=== PATIENT | female | born 1950 | race Caucasian/White ===

== ENCOUNTER → 2018-10-27 | Outpatient (CLI) | payer MEDICARE, OTHER ==
[~2018-10-27] MED LIST: HYDACE5 PO; IBUP600 PO; LISHYD2025 PO; MELA3 PO; METO50 PO; Multivitamin1 EAC1 PO; UNISOM25 MG PO
[2018-10-27 13:20] LABS: BASOPHILS ABSOLUTE AUTO 0.07 K/mm3 (0.00-0.23); BASOPHILS PERCENT AUTO 1 % (0-2); EOSINOPHILS PERCENT AUTO 4 % (0-6); Hematocrit 40.4 % (33.0-51.0); Hemoglobin 14.2 g/dL (11.5-16.0); IMMATURE GRAN ABSOLUTE AUTO 0.01 K/mm3 (0.00-0.10); IMMATURE GRAN PERCENT AUTO 0 % (0-1); LYMPHOCYTES ABSOLUTE AUTO 2.67 K/mm3 (0.84-5.20); LYMPHOCYTES PERCENT AUTO 39 % (21-46); MONOCYTES ABSOLUTE AUTO 0.54 K/mm3 (0.16-1.47); MONOCYTES PERCENT AUTO 8 % (4-13); Mean Corpuscular HGB Conc 35.1 g/dL (31.5-36.5); Mean Corpuscular Volume 88 fL (80-100); Mean Platelet Volume 10.8 fL (9.1-12.4); NEUTROPHILS ABSOLUTE AUTO 3.26 K/mm3 (1.96-9.15); NEUTROPHILS PERCENT AUTO 48 % (41-73); Platelet Count 246 K/mm3 (150-400); RDW Standard Deviation 38.6 fL (35.1-46.3); Red Blood Cell Count 4.58 M/mm3 (3.80-5.20); White Blood Cell Count 6.85 K/mm3 (4.00-11.30)
[2018-10-27 13:37] LABS: Alanine Aminotransfer (ALT/SGP 24 U/L (12-78); Albumin, Blood 3.8 g/dL (3.4-5.0); Albumin/Globulin Ratio 1.1 (0.8-1.8); Alk Phos 75 U/L (40-126); Anion Gap 11 mmol/L (6-16); Aspartate Aminotrans (AST/SGOT 20 U/L (12-37); Bilirubin, Total 1.3 mg/dL (0.1-1.0); Blood Urea Nitrogen 7 mg/dL (8-24); Bun/Creatinine Ratio 8.1 (12.0-20.0); CO2, Blood 23 mmol/L (21-32); Calcium, Blood 9.1 mg/dL (8.5-10.1); Chloride, Blood 103 mmol/L (98-108); Creatinine, Blood 0.86 mg/dL (0.40-1.00); Globulin, Blood 3.6 g/dL (2.2-4.0); Glomerular Filtration Rate >60 (60-); Glucose, Blood 93 mg/dL (70-99); Potassium, Blood 3.7 mmol/L (3.5-5.5); Sodium, Blood 137 mmol/L (136-145); Thyroid Stimulating Hormone 1.373 uIU/mL (0.360-4.800); Total Protein, Blood 7.4 g/dL (6.4-8.2); Troponin I <0.017 ng/mL (0.000-0.040)
== END | disposition home or self-care (01) ==
LOC: LAB EV 13:11 → LAB SHORT 13:11 → LAB 13:11
PROVIDERS: Physician Assistant
DX: R07.9 Chest pain, unspecified (principal); R53.83 Other fatigue
CPT/HCPCS: 80053; 83880; 84443; 84484; 85025

== ENCOUNTER 2019-08-23 08:23 | Day surgery (SDC) | payer OTHER ==
[~2019-08-23 08:23] MED LIST changes: +AMLO5 PO; +EZET10 PO; +LISI20 PO; +NAPR500 PO; +NIAC500 PO
== END 2019-08-23 22:52 | disposition home or self-care (01) ==
LOC: MOI US 08:23
DX: C50.812 Malignant neoplasm of overlapping sites of left female breast (principal)
CPT/HCPCS: 19285; 77065

== ENCOUNTER → 2019-10-14 | Outpatient (CLI) | payer OTHER ==
[2019-10-16 15:07] LABS: HPV 16 Negative (Negative); HPV 18 Negative (Negative); HPV OTHER HR TYPES Positive (Negative)
== END ==
LOC: LAB 16:43 → LAB SHORT 16:43
PROVIDERS: Nurse Practitioner Family
DX: Z12.4 Encounter for screening for malignant neoplasm of cervix (principal)
CPT/HCPCS: 87624; 87625; G0145

== ENCOUNTER → 2020-09-07 | Outpatient (CLI) | payer OTHER ==
[2020-09-07 20:16] LABS: Alanine Aminotransfer (ALT/SGP 29 U/L (12-78); Albumin, Blood 3.9 g/dL (3.4-5.0); Albumin/Globulin Ratio 1.3 (0.8-1.8); Alk Phos 70 U/L (50-136); Anion Gap 9 mmol/L (6-16); Aspartate Aminotrans (AST/SGOT 23 U/L (12-37); Bilirubin, Total 0.9 mg/dL (0.1-1.0); Blood Urea Nitrogen 8 mg/dL (8-24); Bun/Creatinine Ratio 9.9 (12.0-20.0); CO2, Blood 20 mmol/L (21-32); Calcium, Blood 9.7 mg/dL (8.5-10.1); Chloride, Blood 104 mmol/L (98-108); Creatinine, Blood 0.81 mg/dL (0.40-1.00); Globulin, Blood 2.9 g/dL (2.2-4.0); Glomerular Filtration Rate >60 (60-); Glucose, Blood 89 mg/dL (70-99); Phosphorus, Blood 3.5 mg/dL (2.5-4.9); Potassium, Blood 4.2 mmol/L (3.5-5.5); Sodium, Blood 133 mmol/L (136-145); Total Protein, Blood 6.8 g/dL (6.4-8.2)
== END ==
LOC: LAB SHORT 13:50 → LAB 13:50
PROVIDERS: Internal Medicine Hematology & Oncology
DX: E55.9 Vitamin D deficiency, unspecified (principal); I10 Essential (primary) hypertension
CPT/HCPCS: 80053; 82306; 84100

== ENCOUNTER → 2021-03-08 | Outpatient (CLI) | payer OTHER ==
[2021-03-10 13:10] LABS: HPV 16 Negative (Negative); HPV 18 Negative (Negative); HPV OTHER HR TYPES Positive (Negative)
== END ==
LOC: LAB 13:36 → LAB SHORT 13:36
PROVIDERS: Student in an Organized Health Care Education/Training Program
DX: R87.89 Other abnormal findings in specimens from female genital organs (principal)
CPT/HCPCS: 87624; 87625; 88175

== ENCOUNTER → 2021-04-12 | Outpatient (CLI) | payer OTHER | END | disposition home or self-care (01) | LOC: LAB SHORT 08:12 → LAB 08:12 | DX: R87.810 Cervical high risk human papillomavirus (HPV) DNA test positive (principal) | CPT/HCPCS: 88305 ==

== ENCOUNTER → 2022-04-04 | Outpatient (CLI) | payer OTHER | LOC: EFM RAD 13:27 | DX: M25.552 Pain in left hip (principal); M16.12 Unilateral primary osteoarthritis, left hip | CPT/HCPCS: 73502 ==

== ENCOUNTER 2022-12-21 05:56 | Day surgery (SDC) | payer OTHER ==
[2022-12-21] VITALS (20 sets, daily range): BP systolic 115–188; BP diastolic 63–98
[~2022-12-21] VITALS: Ht 162.6 cm; Wt 88.7 kg
[~2022-12-21 05:56] MED LIST changes: +Metoprolol Succ25 MG PO
--- NOTE | 2022-12-21 06:30 | NUR ---
Ambulatory in Day Surgery. History, Chart, Medications and Allergies reviewed before start of procedure.Lungs clear T/O to Auscultation. Patient confirms NPO status and agrees with scheduled surgery. Surgical site prepped with 2% Chlorhexidine cloth wipe. Patient reports completing Chlorhexadine shower X2 prior to admission to hospital.
--- NOTE | 2022-12-21 11:23 | NUR ---
PATIENT ARRIVED ON UNIT FROM PACU TODAY AT 1115. POD 0 LEFT TOTAL HIP PATIENT IS A&OX4. VS ARE WNL AND IS ON RA. PATIENT HAD A SPINAL DURING THE PROCEDURE AND IS DENYING PAIN AT THIS TIME. SHE IS NUMB FROM THE WAIST DOWN BUT PEDAL PULSES ARE STRONG AND WARM TO TOUCH. POLAR PACK IS IN PLACE ON LEFT HIP. SHE IS TOLERATING SMALL AMOUNTS OF PO INTAKE AT THIS TIME. SHE IS LAYING IN BED WITH CALL LIGHT IN REACH. SISTER IS AT BEDSIDE.
--- NOTE | 2022-12-21 13:48 | NUR ---
Pt. is awake in bed and welcomes my visit. Pts. sister is present. Pt. is pleasant, and displays evidence of being a confidant woman of [place]. Facilitate a life review and establish rapport. Pt. verbalizes no concerns but matters of [place] and belief are considered. Prayed with Pt. Pt. 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
--- NOTE | 2022-12-21 16:16 | NUR ---
SHIFT SUMMARY: POD 0 LEFT TOTAL HIP PATIENT IS A&OX4. PAIN IS BETTER MANAGED WITH IV DILAUDID FOR BREAKTHROUGH PAIN, PO OXY, AND THE SCHEDULED PO TYLENOL AND IV TORADOL. HER LEFT HIP HAS AN AQUACEL THAT IS C/D/I. DENIES ANY NUMBNESS OR TINGLING. CAN MOVE ALL FINGERS AND TOES WHEN ASKED. SHE IS A SBA WITH FWW AND GAIT BELT. SHE IS TOLERATING PO INTAKE AND IS VOIDING. SHE IS SITTING UP IN THE RECLINER CHAIR WITH LEGS ELEVATED AND POLAR PACK IN PLACE. CALL LIGHT WITHIN REACH WITH SISTER AT BEDSIDE.
--- NOTE | 2022-12-21 20:30 | NUR ---
BP: PT BP NOTED ELEVATED. PT ASYMPTOMATIC. 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 DISCUSSED CONTACTING MD FOR PRN BP MED. PT REFUSED, STATES "I FEEL FINE, I DON'T NEED OR WANT TO TAKE ANYTHING ELSE" PT EDUCATED ON IMPORTANCE OF BP MGMT, PT NOT RECEPTIVE, STATES "I'M FINE" PT ENC TO NOTIFY NURSING STAFF FOR CHANGES OR IF SX ARISE.
[2022-12-22 00:08] VITALS: BP 179/91
[2022-12-22 04:30] LABS: BASOPHILS ABSOLUTE AUTO 0.01 K/mm3 (0.00-0.23); BASOPHILS PERCENT AUTO 0 % (0-2); EOSINOPHILS ABSOLUTE AUTO 0.01 K/mm3 (0.00-0.68); EOSINOPHILS PERCENT AUTO 0 % (0-6); Hematocrit 29.3 % (33.0-51.0); Hemoglobin 10.1 g/dL (11.5-16.0); IMMATURE GRAN ABSOLUTE AUTO 0.05 K/mm3 (0.00-0.10); IMMATURE GRAN PERCENT AUTO 1 % (0-1); LYMPHOCYTES ABSOLUTE AUTO 1.71 K/mm3 (0.84-5.20); LYMPHOCYTES PERCENT AUTO 17 % (21-46); MONOCYTES ABSOLUTE AUTO 0.84 K/mm3 (0.16-1.47); MONOCYTES PERCENT AUTO 8 % (4-13); Mean Corpuscular HGB 31.7 pg (26.0-34.0); Mean Corpuscular HGB Conc 34.5 g/dL (31.5-36.5); Mean Corpuscular Volume 92 fL (80-100); Mean Platelet Volume 10.4 fL (9.1-12.4); NEUTROPHILS ABSOLUTE AUTO 7.36 K/mm3 (1.96-9.15); NEUTROPHILS PERCENT AUTO 74 % (41-73); Platelet Count 222 K/mm3 (150-400); RDW Coefficient Variation 11.9 % (11.7-14.2); RDW Standard Deviation 40.1 fL (35.1-46.3); Red Blood Cell Count 3.19 M/mm3 (3.80-5.20); White Blood Cell Count 9.98 K/mm3 (4.00-11.30)
[2022-12-22 04:47] LABS: Bun/Creatinine Ratio 20.8 (12.0-20.0); Calcium, Blood 9.4 mg/dL (8.5-10.1); Creatinine, Blood 0.77 mg/dL (0.40-1.00); Magnesium, Blood 2.1 mg/dL (1.6-2.4); Potassium, Blood 4.1 mmol/L (3.5-5.5)
[2022-12-22 06:01] VITALS: BP 154/78
--- NOTE | 2022-12-22 07:09 | NUR ---
POD 1 S/P LEFT ELLA. BP ELEVATED BUT IMPROVED THIS AM, PT REMAINED ASYMPTOMATIC. DRESSINGS CDI. PT DENIED N/T, PULSES AND CAP REFILL WNL. PAIN MGD PER EMAR W/REP RELIEF. PT ALICIA PO, DID HAVE 1 SMALL EPISODE OF EMESIS. PT VOIDING URINE W/O DIFFICULTY, CONT TO HAVE INCONTINENCE R/T URGENCY. PT AMB W/FWW+SBA, ALICIA WELL. PLAN TO MOBILIZE W/PT AND D/C HOME WHEN CLEARED.
[2022-12-22 07:21] VITALS: BP 162/70
[2022-12-22] MEDS ORDERED: ASPI81CH PO (09:11)
[2022-12-22] MEDS ORDERED: HYDMOR2 PO (09:12)
--- NOTE | 2022-12-22 11:27 | NUR ---
1125 DISCHARGED TO HOME WITH FAMILY. PT IN AGREEMENT WITH PLAN TO DISCHARGE. PT AMBULATING WITH WALKER AND STANDBY ASSIST. REPORTS PAIN IS WELL CONTROLLED WITH PO MEDS. ALICIA PO FOOD AND FLUIDS WITHOUT NAUSEA. VOIDING CLEAR YELLOW URINE. DRESSING DRY AND INTACT. PT PROVIDED WITH AQUACEL DRESSINGS FOR HOME.
== END 2022-12-22 11:25 | disposition home or self-care (01) ==
LOC: ORSCMMR 05:56 → ORD 07:30 → SURS 11:04 → ORSCMMR 12-22 11:25
PROVIDERS: Orthopaedic Surgery
PROC: 0SRB0JA Replacement of Left Hip Joint with Synthetic Substitute, Uncemented, Open Approach (ICD-10-PCS; principal; 2022-12-21 07:30)
DX: M16.12 Unilateral primary osteoarthritis, left hip (principal); Z87.891 Personal history of nicotine dependence; I10 Essential (primary) hypertension; Z85.3 Personal history of malignant neoplasm of breast; Z79.899 Other long term (current) drug therapy; E66.9 Obesity, unspecified; Z68.33 Body mass index [BMI] 33.0-33.9, adult
CPT/HCPCS: 36415; 72170; 80048; 83735; 85025; 94760; 97110; 97116; 97161; 97165; 97530; 97535; A9270; C1713; C1776; J0171; J0690; J0735; J1100; J1170; J1885; J2250; J2405; J2704; J2795; J3010; J3370; J7120

== ENCOUNTER → 2023-04-21 | Outpatient (CLI) | payer OTHER ==
[~2023-04-21] MED LIST changes: +ASPI81CH PO; +HYDMOR2 PO
== END ==
LOC: LAB SHORT 15:16 → LAB 15:16
DX: N39.0 Urinary tract infection, site not specified (principal)
CPT/HCPCS: 87077; 87086; 87186

== ENCOUNTER → 2023-06-08 | Outpatient (CLI) | payer OTHER ==
[2023-06-12 15:10] LABS: HPV 16 Negative (Negative); HPV 18 Negative (Negative); HPV OTHER HR TYPES Negative (Negative)
== END ==
LOC: LAB EV 17:42 → LAB SHORT 17:42
PROVIDERS: Family Medicine
DX: Z01.419 Encounter for gynecological examination (general) (routine) without abnormal findings (principal)
CPT/HCPCS: 87624; G0145

== ENCOUNTER → 2023-06-27 | Outpatient (CLI) | payer OTHER ==
[2023-06-27 15:15] LABS: Source, Urine Clean Catch
[2023-06-27 19:28] LABS: Appearance, Urine Clear (Clear); Bilirubin, Urine Neg (Neg); Blood, Urine Neg (Neg); Glucose Qualitative, Urine Neg (Neg); Ketones, Urine Neg (Neg); Leukocyte Esterase, Urine Neg (Neg); Nitrite, Urine Neg (Neg); Protein, Urine Neg (Neg); Urobilinogen, Urine NORM (Normal); pH, Urine 6.5 (5.0-8.0)
[2023-06-27 20:08] LABS: Color, Urine Pale Yellow (P-Yellow)
== END | disposition home or self-care (01) ==
LOC: LAB SHORT 15:12 → LAB 15:12
PROVIDERS: Student in an Organized Health Care Education/Training Program
DX: R30.0 Dysuria (principal)
CPT/HCPCS: 81003

== ENCOUNTER → 2023-06-27 | Outpatient (CLI) | payer OTHER | LOC: LAB 10:00 → LAB SHORT 10:00 | DX: L82.0 Inflamed seborrheic keratosis (principal) | CPT/HCPCS: 88305 ==

== ENCOUNTER → 2024-08-05 | Outpatient (CLI) | payer OTHER ==
[~2024-08-05] MED LIST changes: +Amlodipine Bes2.5 MG PO; +HYDROCHLOROTH12.5 MG PO; +METO25 PO; -Metoprolol Succ25 MG PO; +ONDA4 PO
== END | disposition home or self-care (01) ==
LOC: LAB 15:14 → LAB SHORT 15:14
DX: R35.0 Frequency of micturition (principal)
CPT/HCPCS: 87077; 87086; 87186

== ENCOUNTER → 2024-09-03 | Outpatient (CLI) | payer OTHER | LOC: LAB 16:20 → LAB SHORT 16:20 | DX: N30.00 Acute cystitis without hematuria (principal); R30.9 Painful micturition, unspecified | CPT/HCPCS: 87077; 87086; 87186 ==

== ENCOUNTER → 2025-01-15 | Outpatient (CLI) | payer OTHER | LOC: LAB SHORT 13:59 → LAB 13:59 | DX: R10.9 Unspecified abdominal pain (principal) | CPT/HCPCS: 87077; 87086; 87186 ==

== ENCOUNTER 2025-04-24 16:51 | Emergency (ER) | payer OTHER ==
[~2025-04-24] VITALS: Ht 162.6 cm; Wt 86.2 kg
[~2025-04-24 16:51] MED LIST changes: -HYDROCODONE-AC1 EA10 PO
[2025-04-24 17:39] LABS: BASOPHILS ABSOLUTE AUTO 0.07 K/mm3 (0.00-0.23); BASOPHILS PERCENT AUTO 1 % (0-2); EOSINOPHILS ABSOLUTE AUTO 0.45 K/mm3 (0.00-0.68); EOSINOPHILS PERCENT AUTO 3 % (0-6); Hematocrit 37.0 % (33.0-51.0); Hemoglobin 12.6 g/dL (11.5-16.0); IMMATURE GRAN ABSOLUTE AUTO 0.06 K/mm3 (0.00-0.10); IMMATURE GRAN PERCENT AUTO 0 % (0-1); LYMPHOCYTES ABSOLUTE AUTO 1.60 K/mm3 (0.84-5.20); LYMPHOCYTES PERCENT AUTO 10 % (21-46); MONOCYTES ABSOLUTE AUTO 0.80 K/mm3 (0.16-1.47); MONOCYTES PERCENT AUTO 5 % (4-13); Mean Corpuscular HGB Conc 34.1 g/dL (31.5-36.5); Mean Corpuscular Volume 93 fL (80-100); NEUTROPHILS ABSOLUTE AUTO 12.53 K/mm3 (1.96-9.15); NEUTROPHILS PERCENT AUTO 81 % (41-73); NRBC ABSOLUTE 0.00 K/mm3 (0.00-0.02); NRBC Auto 0.0 /100 WBC (0.0-0.2); Platelet Count 254 K/mm3 (150-400); RDW Coefficient Variation 11.8 % (11.7-14.2); RDW Standard Deviation 40.3 fL (35.1-46.3)
[2025-04-24 18:06] LABS: Alanine Aminotransfer (ALT/SGP 15.0 U/L (12-78); Albumin, Blood 3.8 g/dL (3.4-5.0); Albumin/Globulin Ratio 1.2 (0.8-1.8); Anion Gap 9.0 mmol/L (3-11); Aspartate Aminotrans (AST/SGOT 22.0 U/L (12-37); Bilirubin, Total 0.6 mg/dL (0.1-1.0); Blood Urea Nitrogen 9.0 mg/dL (8-24); CO2, Blood 22.0 mmol/L (21-32); Calcium, Blood 10.1 mg/dL (8.5-10.1); Chloride, Blood 106.0 mmol/L (98-108); Creatinine, Blood 0.75 mg/dL (0.40-1.00); Globulin, Blood 3.3 g/dL (2.2-4.0); Glucose, Blood 128.0 mg/dL (70-99); Potassium, Blood 3.8 mmol/L (3.5-5.5); Sodium, Blood 133.0 mmol/L (136-145); Total Protein, Blood 7.1 g/dL (6.4-8.2)
[2025-04-24 19:01] LABS: Source, Urine Clean Catch
[2025-04-24 19:03] LABS: Bilirubin, Urine Neg (Neg); Color, Urine Yellow (P-Yellow); Glucose Qualitative, Urine Neg (Neg); Ketones, Urine Neg (Neg); Leukocyte Esterase, Urine Neg (Neg); Protein, Urine 1+ (Neg); Specific Gravity, Urine 1.015 (1.003-1.022); Urobilinogen, Urine NORM (Normal)
[2025-04-24] MEDS ORDERED: HYDROCODONE-AC1 EA10 PO (21:29)
[2025-04-24] MEDS ORDERED: ONDA4 PO (21:29)
[2025-04-24 21:52] VITALS: BP 209/103
== END 2025-04-24 21:54 | disposition home or self-care (01) ==
LOC: ER 16:51
PROVIDERS: Student in an Organized Health Care Education/Training Program
DX: R10.2 Pelvic and perineal pain (principal); I10 Essential (primary) hypertension; Z87.891 Personal history of nicotine dependence; Z88.5 Allergy status to narcotic agent; Z88.8 Allergy status to other drugs, medicaments and biological substances; Z79.899 Other long term (current) drug therapy
CPT/HCPCS: 74177; 76770; 80053; 83690; 85025; 99284-25; A9270; Q9967

== ENCOUNTER → 2025-04-24 | Outpatient (CLI) | payer OTHER ==
[~2025-04-24] MED LIST changes: +HYDROCODONE-AC1 EA10 PO
== END | disposition home or self-care (01) ==
LOC: LAB 15:52 → LAB SHORT 15:52
DX: R10.9 Unspecified abdominal pain (principal)
CPT/HCPCS: 87086

== ENCOUNTER → 2025-05-01 | Outpatient (CLI) | payer OTHER ==
[~2025-05-01] MED LIST changes: +HYDROCODONE-AC1 EA10 PO
[2025-05-01 19:51] LABS: BASOPHILS ABSOLUTE AUTO 0.07 K/mm3 (0.00-0.23); BASOPHILS PERCENT AUTO 1 % (0-2); EOSINOPHILS ABSOLUTE AUTO 0.41 K/mm3 (0.00-0.68); EOSINOPHILS PERCENT AUTO 6 % (0-6); Hematocrit 37.4 % (33.0-51.0); Hemoglobin 12.7 g/dL (11.5-16.0); IMMATURE GRAN ABSOLUTE AUTO 0.02 K/mm3 (0.00-0.10); IMMATURE GRAN PERCENT AUTO 0 % (0-1); LYMPHOCYTES ABSOLUTE AUTO 1.80 K/mm3 (0.84-5.20); LYMPHOCYTES PERCENT AUTO 27 % (21-46); MONOCYTES ABSOLUTE AUTO 0.62 K/mm3 (0.16-1.47); MONOCYTES PERCENT AUTO 9 % (4-13); Mean Corpuscular HGB Conc 34.0 g/dL (31.5-36.5); Mean Corpuscular Volume 92 fL (80-100); NEUTROPHILS ABSOLUTE AUTO 3.83 K/mm3 (1.96-9.15); NEUTROPHILS PERCENT AUTO 57 % (41-73); NRBC ABSOLUTE 0.00 K/mm3 (0.00-0.02); NRBC Auto 0.0 /100 WBC (0.0-0.2); Platelet Count 283 K/mm3 (150-400); RDW Coefficient Variation 12.0 % (11.7-14.2); RDW Standard Deviation 40.6 fL (35.1-46.3)
[2025-05-01 20:13] LABS: Alanine Aminotransfer (ALT/SGP 23.0 U/L (12-78); Albumin, Blood 4.1 g/dL (3.4-5.0); Albumin/Globulin Ratio 1.2 (0.8-1.8); Anion Gap 8.0 mmol/L (3-11); Aspartate Aminotrans (AST/SGOT 21.0 U/L (12-37); Bilirubin, Total 1.1 mg/dL (0.1-1.0); Blood Urea Nitrogen 13.0 mg/dL (8-24); CO2, Blood 26.0 mmol/L (21-32); Calcium, Blood 10.3 mg/dL (8.5-10.1); Chloride, Blood 103.0 mmol/L (98-108); Creatinine, Blood 1.02 mg/dL (0.40-1.00); Globulin, Blood 3.3 g/dL (2.2-4.0); Glucose, Blood 93.0 mg/dL (70-99); Potassium, Blood 4.3 mmol/L (3.5-5.5); Sodium, Blood 133.0 mmol/L (136-145); Total Protein, Blood 7.4 g/dL (6.4-8.2)
== END ==
LOC: LAB SHORT 14:46 → LAB 14:46
PROVIDERS: Student in an Organized Health Care Education/Training Program
DX: K86.89 Other specified diseases of pancreas (principal); R17 Unspecified jaundice; R97.8 Other abnormal tumor markers
CPT/HCPCS: 80053; 83690; 85025; 86301